=== PATIENT | female | born 1960 | race African-American/Black ===

== ENCOUNTER 2017-11-28 03:35 | Observation (INO) | payer SELFPAY ==
[~2017-11-28] VITALS: Ht 162.6 cm; Wt 57.6 kg
[2017-11-28] MEDS ORDERED: ASPIRIN 81MG TABLET PO ONE (04:15)
[2017-11-28 04:44] LABS: CLARITY URINE CLOUDY (CLEAR); COLOR URINE YELLOW (YELLOW); KETONES URINE NEGATIVE (NEGATIVE); LEUKOCYTE ESTERASE URINE 1+ (NEGATIVE); NITRITE URINE POSITIVE (NEGATIVE); OCCULT BLOOD URINE NEGATIVE (NEGATIVE); PROTEIN URINE NEGATIVE (NEGATIVE); SPECIFIC GRAVITY URINE 1.011 (1.005-1.030); UROBILINOGEN URINE 0.2 E.U./dL (0.2-1.0)
[2017-11-28 04:57] LABS: *AMPHETAMINES SCREEN URINE NEGATIVE (NEGATIVE); *BARBITURATES SCREEN URINE NEGATIVE (NEGATIVE); *BENZODIAZEPINES SCREEN URINE NEGATIVE (NEGATIVE); *COCAINE SCREEN URINE PRESUMTIVE POSITIVE (NEGATIVE)
[2017-11-28 04:58] LABS: CANNABINOID URINE SCREEN NEGATIVE (NEGATIVE); METHADONE URINE SCREEN NEGATIVE (NEGATIVE); OPIATES URINE SCREEN NEGATIVE (NEGATIVE); PHENCYCLIDINE URINE SCREEN NEGATIVE (NEGATIVE)
[2017-11-28] MEDS ORDERED: CEFTRIAXONE 1 G PREMIX 50 ML IV ONE (05:00)
[2017-11-28 05:44] LABS: BASOPHILS % 0.4 % (0.0-2.0); EOSINOPHILS % 0.9 % (0.0-5.0); HEMATOCRIT. 41.7 % (36.0-48.0); HEMOGLOBIN. 13.9 g/dL (12.0-16.0); LYMPHOCYTES % 35.7 % (20.0-50.0); MEAN CORPUSCULAR HEMOGLOBIN 33.9 pg (28.0-32.0); MEAN CORPUSCULAR VOLUME 101.5 fL (81.0-99.0); MEAN PLATELET VOLUME 8.4 fl (7.4-10.4); MONOCYTES % 14.3 % (2.0-8.0); NEUTROPHILS % 48.7 % (40.0-76.0); PLATELET 218 x1000/uL (130-400); RED BLOOD CELL COUNT 4.11 mill/uL (4.2-5.4); RED CELL DISTRIBUTION WIDTH 12.7 % (11.6-14.6)
[2017-11-28 05:49] LABS: CHLORIDE 110 mEq/L (98-107)
[2017-11-28 05:57] LABS: INR 1.1; PROTHROMBIN TIME 11.3 sec (9.4-11.6)
[2017-11-28 06:00] LABS: ETHANOL BLOOD < 10 mg/dL
[2017-11-28 09:10] VITALS: BP 142/61
[2017-11-28 10:00] VITALS: BP 142/61
[2017-11-28] MEDS ORDERED: NITROGLYCERIN 0.4MG TABLET SL SL PRN (10:30)
[2017-11-28] MEDS ORDERED: DOCUSATE SODIUM 100MG CAPSULE PO PRN (10:30)
[2017-11-28] MEDS ORDERED: ENOXAPARIN 40MG/0.4ML SYR SUBCUT SCH (10:30)
[2017-11-28] MEDS ORDERED: ACETAMINOPHEN 325MG TABLET PO PRN (10:30)
[2017-11-28] MEDS ORDERED: ONDANSETRON HCL 4MG/2ML VIAL IV PRN (10:30)
[2017-11-28] MEDS ORDERED: GUAIFENESIN 200MG/10ML SUGAR FREE UDC PO PRN (10:30)
[2017-11-28] MEDS ORDERED: LORAZEPAM 0.5MG TABLET PO PRN (10:30)
[2017-11-28] MEDS ORDERED: DIPHENHYDRAMINE 50MG/ML VIAL IV PRN (10:30)
[2017-11-28] MEDS ORDERED: LISINOPRIL 5MG TABLET PO SCH (10:45)
[2017-11-28] MEDS ORDERED: MORPHINE SULFATE 4 MG/ML CPJ (NOT FOR IM USE) IV PRN (10:45)
[2017-11-28] MEDS ORDERED: CEFEPIME 1,000 MG in DEXTROSE 5% WATER 50 ML IV SCH (11:00)
[2017-11-28 12:00] VITALS: BP 129/72
[2017-11-28] MEDS ORDERED: LEVOFLOXACIN 500MG TABLET PO SCH (12:00)
[2017-11-28] MEDS: ALBUTEROL (0.083%) 2.5MG/3ML NEB HHN SCH ×2 (12:00→16:30)
[2017-11-28 16:00] VITALS: BP 107/69
[2017-11-28 17:13] LABS: FOLIC ACID (FOLATE) SERUM 13.6 ng/mL (>5.38)
[2017-11-28 20:00] VITALS: BP 136/72
[2017-11-28 20:48] VITALS: BP 136/72
[2017-11-28] MEDS ORDERED: ATORVASTATIN CALCIUM 20MG TABLET PO SCH (21:00)
[2017-11-29] MEDS ORDERED: ASPIRIN 325MG TABLET PO SCH (09:00)
== END 2017-11-28 21:20 | disposition home or self-care (01) ==
LOC: ER 03:35 → 8WST 05:01 → INTOOBSV 05:01 → EDBEDREQ 05:02 → EDBEDREQTM 05:02 → ENRESERV 08:06
PROVIDERS: ADMIT Internal Medicine Geriatric Medicine; ATTEND Internal Medicine Geriatric Medicine
DX: R07.89 Other chest pain (principal); R00.1 Bradycardia, unspecified; F17.210 Nicotine dependence, cigarettes, uncomplicated; F14.10 Cocaine abuse, uncomplicated; J44.9 Chronic obstructive pulmonary disease, unspecified; N39.0 Urinary tract infection, site not specified; Z79.899 Other long term (current) drug therapy
CPT/HCPCS: 36415; 71045; 80053; 80061; 80305; 81003; 82607; 82746; 83690; 83880; 84443; 84484; 85025; 85610; 87086; 93005; 96365; 96372; 96375; 99285; G0378; G0482; J0692; J0696; J1650; J7050; J7611; 96374; J7060